=== PATIENT | female | born 1975 | race American Indian/Alaskan Native ===

== ENCOUNTER 2018-10-26 21:23 | Emergency (ER) | payer MEDICAID ==
--- NOTE | 2018-10-26 21:46 | Event Note ---
ED Screening Note Date of service: 10/26/18 Time: 21:44 ED Screening Note: 43 y/o female comes in for vaginal itching and vag discharge. Surgery on June for hysterectomy, hernia . This initial assessment/diagnostic orders/clinical plan/treatment(s) is/are subject to change based on patients health status, clinical progression and re- assessment by fellow clinical providers in the ED. Further treatment and workup at subsequent clinical providers discretion. Patient/guardian urged not to elope from the ED as their condition may be serious if not clinically assessed and managed. Initial orders include:
[2018-10-26 23:30] LABS: Bacteria,Urine 1+ /HPF (Negative); Bilirubin,Urine NEG (Negative); Blood,Urine MOD (Negative); Color,Urine Yellow (Yellow); Mucus,Urine FEW /HPF; Protein,Urine <15 mg/dL mg/dL (Negative); Urobilinogen,Urine < 2.0 mg/dL (<2.0)
--- NOTE | 2018-10-27 00:34 | Emergency Department Report ---
ED Female HPI - General Chief complaint: Urogenital-Female Stated complaint: HANDS/FEET SWELLING/FEVER/VAG ITCH Time Seen by Provider: 10/26/18 21:43 Source: patient Mode of arrival: Ambulatory Limitations: No Limitations - History of Present Illness Initial comments: Patient is a 43-year-old female who presents the emergency room with complaints of vaginal discharge that began 3 days ago. States she has clear discharge. Associated vaginal itching, vaginal irritation, vaginal swelling. She denies any dysuria, urinary frequency, nausea, vomiting, abdominal pain. She is sexually active with a new partner and has not used protection. STD history of Trichomonas which she received treatment for at that time. She denies any past medical history or allergies to medications. She has had a total hysterectomy. - Related Data Previous Rx's Medication Instructions Recorded Last Taken Type metroNIDAZOLE [Flagyl] 500 mg PO BID 7 Days #14 tab 10/27/18 Unknown Rx Allergies Allergy/AdvReac Type Severity Reaction Status Date / Time No Known Allergies Allergy Unverified 10/26/18 21:34 ED Review of Systems ROS: Stated complaint: HANDS/FEET SWELLING/FEVER/VAG ITCH Other details as noted in HPI Comment: All other systems reviewed and negative ED Past Medical Hx - Past Medical History Previous Medical History?: Yes Additional medical history: Fibroid removalwith recent Hysterectomy 3 months ago with bladder lift and hernia repair - Surgical History Past Surgical History?: Yes Additional Surgical History: Fibroid removal with hysterectomy, bladder lift, and hernia repair 07/22/18 - Social History Smoking Status: Never Smoker Substance Use Type: None - Medications Home Medications: Home Medications Medication Instructions Recorded Confirmed Last Taken Type metroNIDAZOLE [Flagyl] 500 mg PO BID 7 Days #14 tab 10/27/18 Unknown Rx ED Physical Exam - General Limitations: No Limitations General appearance: alert, in no apparent distress - Head Head exam: Present: atraumatic, normocephalic - Eye Eye exam: Present: normal appearance, PERRL - ENT ENT exam: Present: mucous membranes moist - Respiratory Respiratory exam: Present: normal lung sounds bilaterally. Absent: respiratory distress, wheezes, rales, rhonchi, stridor, chest wall tenderness, accessory muscle use, decreased breath sounds, prolonged expiratory - Cardiovascular Cardiovascular Exam: Present: regular rate, normal rhythm, normal heart sounds. Absent: systolic murmur, diastolic murmur, rubs, gallop - GI/Abdominal GI/Abdominal exam: Present: soft, normal bowel sounds. Absent: distended, tenderness, guarding, rebound, rigid - External exam: Present: normal external exam. Absent: erythema, swelling, lesions, lacerations, ecchymosis, bleeding Speculum exam: Present: vaginal discharge (copious amounts of clear/white discharge ), other (build master: MARTA Ochoa, cervix is surgically absent ). Absent: erythema, vaginal bleeding, foreign body, tissue, laceration Bi-manual exam: Present: normal bi-manual exam. Absent: adnexal tenderness, adnexal mass - Back Exam Back exam: Absent: CVA tenderness (R), CVA tenderness (L) - Neurological Exam Neurological exam: Present: alert, oriented X3 - Psychiatric Psychiatric exam: Present: normal affect, normal mood - Skin Skin exam: Present: warm, dry, intact ED Course Vital Signs 10/26/18 10/27/18 21:43 02:11 Temperature 98.8 F 98.8 F Pulse Rate 84 67 Respiratory 18 18 Rate Blood Pressure 116/71 Blood Pressure 144/93 [Right] O2 Sat by Pulse 98 99 Oximetry ED Medical Decision Making - Lab Data Lab Results 10/26/18 Range/Units 23:00 Urine Color Yellow (Yellow) Urine Turbidity Slightly-cloudy (Clear) Urine pH 6.0 (5.0-7.0) Ur Specific [place] 1.026 (1.003-1.030) Urine Protein <15 mg/dl (Negative) mg/dL Urine Glucose (UA) Neg (Negative) mg/dL Urine Ketones Neg (Negative) mg/dL Urine Blood Mod (Negative) Urine Nitrite Neg (Negative) Urine Bilirubin Neg (Negative) Urine Urobilinogen < 2.0 (<2.0) mg/dL Ur Leukocyte Esterase Mod (Negative) Urine WBC (Auto) 4.0 (0.0-6.0) /HPF Urine RBC (Auto) 10.0 (0.0-6.0) /HPF U Epithel Cells (Auto) 5.0 (0-13.0) /HPF Urine Bacteria (Auto) 1+ (Negative) /HPF Urine Mucus Few /HPF - Medical Decision Making Patient is a 43-year-old female who presents the emergency room with complaints of vaginal discharge that began 3 days ago. States she has clear discharge. Associated vaginal itching, vaginal irritation, vaginal swelling. She denies any dysuria, urinary frequency, nausea, vomiting, abdominal pain. She is sexually active with a new partner and has not used protection. STD history of Trichomonas which she received treatment for at that time. She denies any past medical history or allergies to medications. She has had a total hysterectomy. UA is normal. wet prep shows many trichomonas, clue cells, and PMNs. Patient given prescription for Flagyl. Advised to take as prescribed. Discussed to not drink alcohol while taking medication. Patient swabbed for gonorrhea and chlamydia. Advised to check back with medical records in one week for results of tests to see if she needs further treatment. Discussed with patient to abstain from sexual intercourse for 10 days. Have partner tested and treated as well. If concern for any other STDs please be seen by the health Department, primary care doctor, or [facility] SPOTTER. Return to the emergency room for any new or worsening symptoms. - Differential Diagnosis UTI, STD, yeast, BV, vaginitis Critical care attestation.: If time is entered above; I have spent that time in minutes in the direct care of this critically ill patient, excluding procedure time. ED Disposition Clinical Impression: Trichomonas vaginitis, BV (bacterial vaginosis) Disposition: DC- TO HOME OR SELFCARE Is pt being admited?: No Does the pt Need Aspirin: No Condition: Stable Instructions: Bacterial Vaginosis (ED), Sexually Transmitted Diseases (ED), Safe Sex (ED), Trichomoniasis (ED) Additional Instructions: Please take medication as prescribed. Do not drink alcohol while taking medication. Please check back with medical records in one week for results of tests to see if you need further treatment. Abstain from sexual intercourse for 10 days. Have partner tested and treated as well. If concerned for any other STDs please be seen by the health Department, primary care doctor, or D[facility] SPOTTER. Return to the emergency room for any new or worsening symptoms. Prescriptions: metroNIDAZOLE [Flagyl] 500 mg PO BID 7 Days #14 tab Referrals: PAULINO GIMENEZ MD [Primary Care Provider] - 2-3 Days Forms: STI Treatment and Prevention Time of Disposition: 01:48 Print Language: KOSOVAN
[2018-10-27 02:12] VITALS: BP 144/93
== END 2018-10-27 02:12 | disposition home or self-care (01) ==
LOC: ED 21:23
DX: A59.01 Trichomonal vulvovaginitis (principal); N76.0 Acute vaginitis; Z90.710 Acquired absence of both cervix and uterus; Z79.899 Other long term (current) drug therapy
CPT/HCPCS: 81001; 87210; 87591; 99284

== ENCOUNTER 2020-03-05 01:35 | Emergency (ER) | payer MEDICAID ==
[2020-03-05 01:48] VITALS: BP 137/47
[2020-03-05 02:18] LABS: Basophils # (Auto) 0.1 K/mm3 (0.0-0.1); Eosinophils # (Auto) 0.2 K/mm3 (0.0-0.4); Hematocrit 37.5 % (30.3-42.9); Lymphocytes # (Auto) 3.3 K/mm3 (1.2-5.4); Lymphocytes % (Auto) 39.2 % (13.4-35.0); Mean Corpuscular HGB Conc 35 % (30-34); Mean Corpuscular Volume 90 fl (79-97); Monocytes # (Auto) 0.6 K/mm3 (0.0-0.8); Monocytes % (Auto) 7.7 % (0.0-7.3); Platelet Count 290 K/mm3 (140-440); Red Blood Count 4.19 M/mm3 (3.65-5.03); Red Cell Distribution Width 12.8 % (13.2-15.2)
[2020-03-05 02:32] LABS: Alanine Aminotransferase 10 units/L (7-56); Albumin 4.2 g/dL (3.9-5); BUN/Creatinine Ratio 14; Blood Urea Nitrogen 13 mg/dL (7-17); Calcium 10.8 mg/dL (8.4-10.2); Hemolysis Index 6
[2020-03-05 03:03] LABS: Bilirubin,Urine NEG (Negative); Blood,Urine NEG (Negative); Color,Urine Yellow (Yellow); Urobilinogen,Urine < 2.0 mg/dL (<2.0)
[2020-03-05] MEDS ORDERED: KETOROLAC 30 MG/1 ML INJ IV ONE (04:22)
[2020-03-05] MEDS ORDERED: ONDANSETRON 4 MG/2 ML INJ IV ONE (04:22)
[2020-03-05] MEDS ORDERED: SODIUM CHLORIDE 0.9% 1000 ML 1,000 ML IV ONE (04:22)
--- NOTE | 2020-03-05 04:29 | Emergency Department Report ---
ED Abdominal Pain HPI - General Chief Complaint: Abdominal Pain Stated Complaint: ABD PAIN/EMESIS/DIZZINESS Time Seen by Provider: 03/05/20 04:20 Source: patient Mode of arrival: Ambulatory Limitations: No Limitations - History of Present Illness Initial Comments: Patient is a 44-year-old female with history of FLORENCIO who presents for abdominal pain that radiates to suprapubic intermittent, some urinary frequency no fever chills, no hematuria. Symptoms of the past 3 days. Symptoms are exacerbated by movement and palpation. Symptoms are relieved by movement and palpation, patient states nausea vomiting last episode 1 hour ago. Patient denies hematu germán, there is no fever no chills. Patient denies history of renal stones , she is s/p FLORENCIO, there has been no fever or chills. MD Complaint: abdominal pain Radiation: suprapubic (17) Migration to: suprapubic Severity scale (0 -10): 4 Quality: cramping, aching Consistency: intermittent Improves With: nothing Worsens With: nothing Associated Symptoms: nausea, vomiting, dysuria. denies: chills, constipation Treatments Prior to Arrival: NSAIDs - Related Data LMP (females 10-50): other (s/p florencio) Previous Rx's Medication Instructions Recorded Last Taken Type metroNIDAZOLE [Flagyl] 500 mg PO BID 7 Days #14 tab 10/27/18 Unknown Rx Albuterol Mdi (or & Nicu Only) 2 puff IH QID PRN #1 inhalation 12/27/18 Unknown Rx [ProAir HFA Inhaler] Benzonatate [Tessalon Perles] 100 mg PO Q8HR PRN #15 capsule 12/27/18 Unknown Rx Ibuprofen [Motrin 800 MG tab] 800 mg PO Q8HR PRN #30 tablet 12/27/18 Unknown Rx Ciprofloxacin HCl [Ciprofloxacin 500 mg PO BID 10 Days #20 tablet 03/05/20 Unknown Rx TAB] Omeprazole 40 mg PO DAILY #30 capsule. 03/05/20 Unknown Rx metroNIDAZOLE [Flagyl] 500 mg PO Q8HR 10 Days #30 tablet 03/05/20 Unknown Rx polyethylene glycoL 3350 [Miralax 17 gm PO BID PRN #14 packet 03/05/20 Unknown Rx 3350] traMADoL [Ultram] 50 mg PO Q6HR PRN #12 tablet 03/05/20 Unknown Rx Allergies Allergy/AdvReac Type Severity Reaction Status Date / Time No Known Allergies Allergy Verified 12/27/18 18:32 ED Review of Systems ROS: Stated complaint: ABD PAIN/EMESIS/DIZZINESS Other details as noted in HPI Constitutional: denies: chills, fever Eyes: denies: eye pain, eye discharge, vision change ENT: denies: ear pain, throat pain Respiratory: denies: cough, shortness of breath, wheezing Cardiovascular: denies: chest pain, palpitations Endocrine: no symptoms reported Gastrointestinal: abdominal pain, nausea, vomiting. denies: diarrhea, constipation Genitourinary: denies: urgency, dysuria, discharge Musculoskeletal: denies: back pain, joint swelling, arthralgia Skin: denies: rash, lesions Neurological: denies: headache, weakness, paresthesias Psychiatric: denies: anxiety, depression Hematological/Lymphatic: swollen glands. denies: easy bleeding, easy bruising ED Past Medical Hx - Past Medical History Previous Medical History?: No Additional medical history: Fibroid. Hysterectomy. Hernia repair - Surgical History Additional Surgical History: Fibroid. Hysterectomy, Bladder lift, and Hernia repair. - Social History Smoking Status: Never Smoker Substance Use Type: None - Medications Home Medications: Home Medications Medication Instructions Recorded Confirmed Last Taken Type metroNIDAZOLE [Flagyl] 500 mg PO BID 7 Days #14 tab 10/27/18 Unknown Rx Albuterol Mdi (or & Nicu Only) 2 puff IH QID PRN #1 inhalation 12/27/18 Unknown Rx [ProAir HFA Inhaler] Benzonatate [Tessalon Perles] 100 mg PO Q8HR PRN #15 capsule 12/27/18 Unknown Rx Ibuprofen [Motrin 800 MG tab] 800 mg PO Q8HR PRN #30 tablet 12/27/18 Unknown Rx Ciprofloxacin HCl [Ciprofloxacin 500 mg PO BID 10 Days #20 tablet 03/05/20 Unknown Rx TAB] Omeprazole 40 mg PO DAILY #30 capsule.dr 03/05/20 Unknown Rx metroNIDAZOLE [Flagyl] 500 mg PO Q8HR 10 Days #30 tablet 03/05/20 Unknown Rx polyethylene glycoL 3350 [Miralax 17 gm PO BID PRN #14 packet 03/05/20 Unknown Rx 3350] traMADoL [Ultram] 50 mg PO Q6HR PRN #12 tablet 03/05/20 Unknown Rx ED Physical Exam - General Limitations: No Limitations General appearance: alert, in no apparent distress - Head Head exam: Present: atraumatic, normocephalic - Eye Eye exam: Present: normal appearance, PERRL, EOMI Pupils: Present: irregular - ENT ENT exam: Present: mucous membranes moist - Neck Neck exam: Present: normal inspection - Respiratory Respiratory exam: Present: normal lung sounds bilaterally. Absent: respiratory distress - Cardiovascular Cardiovascular Exam: Present: regular rate, normal rhythm, normal heart sounds. Absent: systolic murmur, diastolic murmur, rubs, gallop - GI/Abdominal GI/Abdominal exam: Present: soft, tenderness (mild cva tenderness to deep palpation), normal bowel sounds. Absent: distended, guarding, rebound, rigid, bruit, hernia - Rectal Rectal exam: Present: deferred - Extremities Exam Extremities exam: Present: normal inspection - Back Exam Back exam: Present: normal inspection, full ROM. Absent: tenderness, CVA tenderness (R), CVA tenderness (L) - Neurological Exam Neurological exam: Present: alert, oriented X3 - Psychiatric Psychiatric exam: Present: normal affect, normal mood - Skin Skin exam: Present: warm, dry, intact, normal color. Absent: rash ED Course Vital Signs 03/05/20 01:43 Temperature 98.5 F Pulse Rate 99 H Respiratory 18 Rate Blood Pressure 137/47 O2 Sat by Pulse 99 Oximetry ED Medical Decision Making - Lab Data Result diagrams: 03/05/20 01:53 03/05/20 01:53 Labs 03/05/20 03/05/20 03/05/20 01:53 01:53 02:39 WBC 8.3 RBC 4.19 Hgb 13.0 Hct 37.5 MCV 90 MCH 31 MCHC 35 H RDW 12.8 L Plt Count 290 Lymph % (Auto) 39.2 H [place] % (Auto) 7.7 H Eos % (Auto) 2.0 Baso % (Auto) 1.0 Lymph # (Auto) 3.3 [place] # (Auto) 0.6 Eos # (Auto) 0.2 Baso # (Auto) 0.1 Seg Neutrophils % 50.1 Seg Neutrophils # 4.2 Sodium 143 Potassium 4.0 Chloride 106.1 Carbon Dioxide 30 Anion Gap 11 BUN 13 Creatinine 0.9 Estimated GFR > 60 BUN/Creatinine Ratio 14 Glucose 136 H Calcium 10.8 H Total Bilirubin 0.40 AST 20 ALT 10 Alkaline Phosphatase 57 Total Protein 7.6 Albumin 4.2 Albumin/Globulin Ratio 1.2 Lipase 26 Urine Color Yellow Urine Turbidity Turbid Urine pH 7.0 Ur Specific [place] 1.017 Urine Protein 100 mg/dl Urine Glucose (UA) Neg Urine Ketones Neg Urine Blood Neg Urine Nitrite Neg Urine Bilirubin Neg Urine Urobilinogen < 2.0 Ur Leukocyte Esterase Neg Urine WBC (Auto) 21.0 H Urine RBC (Auto) 9.0 - Radiology Data Radiology results: report reviewed, image reviewed Findings Reporting MD: Rell Spence Dictation Time: March 05, 2020 04:54 Dispute Specialist: Not available Dining Car Conductor Date: CT ABDOMEN AND PELVIS WITHOUT CONTRAST INDICATION / CLINICAL INFORMATION: Pt complains of mid-abdominal pain with nausea and vomiting.. TECHNIQUE: Axial CT images were obtained through the abdomen and pelvis without IV contrast. All CT scans at this location are performed using CT dose reduction for ALARA by means of automated exposure control. COMPARISON: None available. FINDINGS: LOWER CHEST: No significant abnormality. LIVER: Fatty liver. GALLBLADDER: No significant abnormality. BILE DUCTS: No significant abnormality. PANCREAS: No significant abnormality. SPLEEN: No significant abnormality. ADRENALS: No significant abnormality. RIGHT KIDNEY and URETER: No significant abnormality. LEFT KIDNEY and URETER: No significant abnormality. STOMACH and SMALL BOWEL: Several dilated loops of small bowel within the mid abdomen that appeared to the anterior abdominal wall at the level the umbilicus.. COLON: No significant abnormality. APPENDIX: No significant abnormality. PERITONEUM: No free fluid. No free air. No fluid collection. LYMPH NODES: No significant adenopathy. AORTA and ARTERIES: No significant abnormality. IVC and VEINS: No significant abnormality. URINARY BLADDER: No significant abnormality. REPRODUCTIVE ORGANS: No significant abnormality. ADDITIONAL FINDINGS: None. SKELETAL SYSTEM: No significant abnormality. IMPRESSION: Load intermediate grade mechanical small bowel obstruction of the small bowel near the level the umbilicus, possibly secondary to adhesions. [place] Imagi - Medical Decision Making ct abd and pelvis: Load intermediate grade mechanical small bowel obstruction of the small bowel near the level the umbilicus, possibly secondary to adhesions. I have discuss indepth with patient concerning possible SBO and need for surgical consult and possible inpatient tx, pt declines - states Pain is now 0/10 after medications given in ED. Patient is tolerating p.o. intake without nausea vomiting. Patient advises having normal bowel movements. There is no periumbilical pain at this time. There has been no fevers no chills and N/V now resolved, pt has had bowel movement since arrival to ed. pt declined General surgery consult, agrees to follow up with same. pt given strict instructions to return to ed if symptoms return or worsen. pt has follow up appoint with [facility], given referral to general surgery, dc'd with abx, Miralax , will continue hydrate as directed. pt verbalized agreement and understanding of discharge plan. pt dc'd in stable condition at this time. Critical care attestation.: If time is entered above; I have spent that time in minutes in the direct care of this critically ill patient, excluding procedure time. ED Disposition Clinical Impression: UTI (urinary tract infection) Qualifiers: Urinary tract infection type: acute cystitis Hematuria presence: without hematuria Qualified Code(s): N30.00 - Acute cystitis without hematuria Abdominal pain Qualifiers: Abdominal location: generalized Qualified Code(s): R10.84 - Generalized abdominal pain Disposition: DC- TO HOME OR SELFCARE Is pt being admited?: No Does the pt Need Aspirin: No Condition: Stable Instructions: Abdominal Pain (ED) Additional Instructions: Hydrate as directed 1 gallon of water daily for next 3 days, return to emergency if nause and vomiting returns or unable to have bowel movement, of fever. Call General Surgery consult today Dr. Celeste for follow up. Prescriptions: Ciprofloxacin HCl [Ciprofloxacin TAB] 500 mg PO BID 10 Days #20 tablet metroNIDAZOLE [Flagyl] 500 mg PO Q8HR 10 Days #30 tablet polyethylene glycoL 3350 [Miralax 3350] 17 gm PO BID PRN #14 packet PRN Reason: Constipation Omeprazole 40 mg PO DAILY #30 capsule. traMADoL [Ultram] 50 mg PO Q6HR PRN #12 tablet PRN Reason: Pain Referrals: AARON CELESTE DO [Staff Physician] - 3-5 Days Forms: Work/School Release Form(ED) Time of Disposition: 06:44
--- NOTE | 2020-03-05 05:58 | Cat Scan Report ---
CT ABDOMEN AND PELVIS WITHOUT CONTRAST INDICATION / CLINICAL INFORMATION: Pt complains of mid-abdominal pain with nausea and vomiting.. TECHNIQUE: Axial CT images were obtained through the abdomen and pelvis without IV contrast. All CT scans at [facility] location are performed using CT dose reduction for ALARA by means of automated exposure control. COMPARISON: None available. FINDINGS: LOWER CHEST: No significant abnormality. LIVER: Fatty liver. GALLBLADDER: No significant abnormality. BILE DUCTS: No significant abnormality. PANCREAS: No significant abnormality. SPLEEN: No significant abnormality. ADRENALS: No significant abnormality. RIGHT KIDNEY and URETER: No significant abnormality. LEFT KIDNEY and URETER: No significant abnormality. STOMACH and SMALL BOWEL: Several dilated loops of small bowel within the mid abdomen that appeared to the anterior abdominal wall at the level the umbilicus.. COLON: No significant abnormality. APPENDIX: No significant abnormality. PERITONEUM: No free fluid. No free air. No fluid collection. LYMPH NODES: No significant adenopathy. AORTA and ARTERIES: No significant abnormality. IVC and VEINS: No significant abnormality. URINARY BLADDER: No significant abnormality. REPRODUCTIVE ORGANS: No significant abnormality. ADDITIONAL FINDINGS: None. SKELETAL SYSTEM: No significant abnormality. IMPRESSION: Load intermediate grade mechanical small bowel obstruction of the small bowel near the level the umbi licus, possibly secondary to adhesions. Signer Name: Rell Spence MD Signed: 03/05/2020 5:54 AM Workstation Name: [id number]
== END 2020-03-05 06:50 | disposition home or self-care (01) ==
LOC: ED 01:35
DX: N39.0 Urinary tract infection, site not specified (principal); R10.30 Lower abdominal pain, unspecified; Z90.710 Acquired absence of both cervix and uterus; Z79.899 Other long term (current) drug therapy; Z98.890 Other specified postprocedural states
CPT/HCPCS: 36415; 74176; 80053; 81001; 83690; 85025; 87086; 96361; 96374; 96375; 99284; J1885; J2405; J7030

== ENCOUNTER 2020-03-18 04:57 | Emergency (ER) | payer MEDICAID ==
[2020-03-18 06:26] LABS: Basophils % (Auto) 0.7 % (0.0-1.8); Eosinophils # (Auto) 0.1 K/mm3 (0.0-0.4); Eosinophils % (Auto) 1.9 % (0.0-4.3); Hematocrit 39.3 % (30.3-42.9); Hemoglobin 13.2 gm/dl (10.1-14.3); Lymphocytes % (Auto) 28.1 % (13.4-35.0); Mean Corpuscular HGB Conc 34 % (30-34); Mean Corpuscular Volume 91 fl (79-97); Monocytes # (Auto) 0.6 K/mm3 (0.0-0.8); Monocytes % (Auto) 7.9 % (0.0-7.3); Platelet Count 306 K/mm3 (140-440); Red Cell Distribution Width 13.4 % (13.2-15.2)
[2020-03-18 06:31] LABS: Bacteria,Urine 1+ /HPF (Negative); Bilirubin,Urine NEG (Negative); Blood,Urine NEG (Negative); Color,Urine Yellow (Yellow); Mucus,Urine FEW /HPF; Protein,Urine <15 mg/dL mg/dL (Negative); Urobilinogen,Urine < 2.0 mg/dL (<2.0)
[2020-03-18 06:35] LABS: Alanine Aminotransferase 13 units/L (7-56); Albumin 4.2 g/dL (3.9-5); BUN/Creatinine Ratio 11; Blood Urea Nitrogen 9 mg/dL (7-17); Calcium 10.6 mg/dL (8.4-10.2); Hemolysis Index 9
[2020-03-18] MEDS ORDERED: LACTATED RINGERS 1,000 ML IV ONE (07:06)
[2020-03-18] MEDS ORDERED: MORPHINE 4 MG/1 ML INJ IV ONE (07:06)
[2020-03-18] MEDS ORDERED: ONDANSETRON 4 MG/2 ML INJ IV ONE (07:06)
--- NOTE | 2020-03-18 07:12 | Emergency Department Report ---
ED General Adult HPI - General Chief complaint: Abdominal Pain Stated complaint: NAUSEA/HEADACHE/ABD PAIN PUI?: No Time Seen by Provider: 03/18/20 07:03 Source: patient Mode of arrival: Ambulatory Limitations: No Limitations - History of Present Illness Initial comments: 44-year-old female presenting with chief complaint of abdominal pain, sudden onset at 3:00 this morning associated with nausea and vomiting. Denies any fevers, constipation, diarrhea, dysuria. She does state that she was here for similar symptoms about 2 weeks ago but they resolved. She reports pain is moderate to severe, constant, nonradiating. Denies any other associated symptoms. No alleviating or exacerbating factors. - Related Data Previous Rx's Medication Instructions Recorded Last Taken Type metroNIDAZOLE [Flagyl] 500 mg PO BID 7 Days #14 tab 10/27/18 Unknown Rx Albuterol Mdi (or & Nicu Only) 2 puff IH QID PRN #1 inhalation 12/27/18 Unknown Rx [ProAir HFA Inhaler] Benzonatate [Tessalon Perles] 100 mg PO Q8HR PRN #15 capsule 12/27/18 Unknown Rx Ibuprofen [Motrin 800 MG tab] 800 mg PO Q8HR PRN #30 tablet 12/27/18 Unknown Rx Ciprofloxacin HCl [Ciprofloxacin 500 mg PO BID 10 Days #20 tablet 03/05/20 Unknown Rx TAB] Omeprazole 40 mg PO DAILY #30 capsule. 03/05/20 Unknown Rx metroNIDAZOLE [Flagyl] 500 mg PO Q8HR 10 Days #30 tablet 03/05/20 Unknown Rx polyethylene glycoL 3350 [Miralax 17 gm PO BID PRN #14 packet 03/05/20 Unknown Rx 3350] Nystatin [Nystatin SUSP] 5 ml PO QID #140 ml 03/18/20 Unknown Rx Ondansetron [Zofran Odt] 4 mg PO Q8HR #12 tab.rapdis 03/18/20 Unknown Rx Promethazine [Phenergan] 25 mg PO Q6HR PRN #12 tab 03/18/20 Unknown Rx traMADoL [Ultram 50 MG tab] 50 mg PO Q6HR PRN #12 tablet 03/18/20 Unknown Rx Allergies Allergy/AdvReac Type Severity Reaction Status Date / Time No Known Allergies Allergy Verified 12/27/18 18:32 ED Review of Systems ROS: Stated complaint: NAUSEA/HEADACHE/ABD PAIN Other details as noted in HPI Comment: All other systems reviewed and negative Gastrointestinal: as per HPI ED Past Medical Hx - Past Medical History Previous Medical History?: No Additional medical history: Fibroid. Hysterectomy. Hernia repair - Surgical History Past Surgical History?: Yes Additional Surgical History: Fibroid. Hysterectomy, Bladder lift, and Hernia repair. - Social History Smoking Status: Never Smoker Substance Use Type: Alcohol - Medications Home Medications: Home Medications Medication Instructions Recorded Confirmed Last Taken Type metroNIDAZOLE [Flagyl] 500 mg PO BID 7 Days #14 tab 10/27/18 Unknown Rx Albuterol Mdi (or & Nicu Only) 2 puff IH QID PRN #1 inhalation 12/27/18 Unknown Rx [ProAir HFA Inhaler] Benzonatate [Tessalon Perles] 100 mg PO Q8HR PRN #15 capsule 12/27/18 Unknown Rx Ibuprofen [Motrin 800 MG tab] 800 mg PO Q8HR PRN #30 tablet 12/27/18 Unknown Rx Ciprofloxacin HCl [Ciprofloxacin 500 mg PO BID 10 Days #20 tablet 03/05/20 Unknown Rx TAB] Omeprazole 40 mg PO DAILY #30 capsule.dr 03/05/20 Unknown Rx metroNIDAZOLE [Flagyl] 500 mg PO Q8HR 10 Days #30 tablet 03/05/20 Unknown Rx polyethylene glycoL 3350 [Miralax 17 gm PO BID PRN #14 packet 03/05/20 Unknown Rx 3350] Nystatin [Nystatin SUSP] 5 ml PO QID #140 ml 03/18/20 Unknown Rx Ondansetron [Zofran Odt] 4 mg PO Q8HR #12 tab.rapdis 03/18/20 Unknown Rx Promethazine [Phenergan] 25 mg PO Q6HR PRN #12 tab 03/18/20 Unknown Rx traMADoL [Ultram 50 MG tab] 50 mg PO Q6HR PRN #12 tablet 03/18/20 Unknown Rx ED Physical Exam - General Limitations: No Limitations General appearance: alert, in no apparent distress - Head Head exam: Present: atraumatic, normocephalic - Eye Eye exam: Present: normal appearance - ENT ENT exam: Present: mucous membranes moist - Neck Neck exam: Present: normal inspection - Respiratory Respiratory exam: Present: normal lung sounds bilaterally. Absent: respiratory distress - Cardiovascular Cardiovascular Exam: Present: regular rate, normal rhythm. Absent: systolic murmur, diastolic murmur, rubs, gallop - GI/Abdominal GI/Abdominal exam: Present: soft, tenderness (Periumbilical/lower abdomen), diminished bowel sounds. Absent: distended, guarding, rebound - Extremities Exam Extremities exam: Present: normal inspection - Back Exam Back exam: Present: normal inspection - Neurological Exam Neurological exam: Present: alert, oriented X3 - Psychiatric Psychiatric exam: Present: normal affect, normal mood - Skin Skin exam: Present: warm, dry, intact, normal color. Absent: rash ED Course Vital Signs 03/18/20 03/18/20 03/18/20 05:09 07:38 08:13 Pulse Rate 88 Respiratory 18 18 18 Rate Blood Pressure 131/82 O2 Sat by Pulse 99 99 Oximetry ED Medical Decision Making - Lab Data Result diagrams: 03/18/20 05:51 03/18/20 05:51 - Radiology Data Low-grade SBO, improved from prior - Medical Decision Making 44-year-old female with history of total abdominal hysterectomy presents with chief complaint of abdominal pain since 3:00 this morning. States she had similar symptoms here couple weeks ago. On my exam today she has tenderness to the periumbilical area as well as the lower abdomen but no rigidity. Bowel sounds do seem to be decreased. Review of records from 2 weeks ago showed a [address] scan with findings suggestive of small bowel obstruction however at that time the patient refused admission and stated that she felt better and went home. Today we will check labs, repeat CT scan, give IV fluids, morphine, Zofran and then reassess. CT shows findings of chronic low-grade bowel obstruction, I discussed this with Dr. Celeste, general surgery who is also reviewed the CT and states this may be more of an enteritis however recommends if patient's pain is controlled and she can tolerate oral fluids she does not feel that admission is necessary and that she can follow-up outpatient. I discussed with the patient who is tolerating oral fluids and states that she feels much better and agrees that she is stable for outpatient follow-up. I did advise if symptoms worsen she should return. She also states that she believes she has thrush on her tongue and this is noted, albeit mild, will treat. - Differential Diagnosis SBO, abdominal adhesions, colitis Critical care attestation.: If time is entered above; I have spent that time in minutes in the direct care of this critically ill patient, excluding procedure time. ED Disposition Clinical Impression: SBO (small bowel obstruction) Disposition: TO HOME OR SELFCARE Is pt being admited?: No Condition: Stable Instructions: Abdominal Pain (ED), Bowel Obstruction, [id number], Bowel Obstruction Prescriptions: Nystatin [Nystatin SUSP] 5 ml PO QID #140 ml Promethazine [Phenergan] 25 mg PO Q6HR PRN #12 tab PRN Reason: Nausea traMADoL [Ultram 50 MG tab] 50 mg PO Q6HR PRN #12 tablet PRN Reason: Pain Ondansetron [Zofran Odt] 4 mg PO Q8HR #12 tab.[email or web address] Referrals: PRIMARY CARE,MD [Primary Care Provider] - 3-5 Days AARON CELESTE DO [Staff Physician] - 3-5 Days Time of Disposition: 10:38
--- NOTE | 2020-03-18 08:54 | Cat Scan Report ---
CT abdomen pelvis w con INDICATION / CLINICAL INFORMATION: Abdominal pain TECHNIQUE: Routine CT abdomen and pelvis with IV contrast All CT scans at this location are performed using CT d ose reduction for ALARA by means of automated exposure control. COMPARISON: 03/05/2020 FINDINGS: Abdomen and pelvis: When compared to the prior exam there has been minimal to only slight improvement in the overall distention of the slightly dilated distal small bowel loops. There is again subtle ar eas of angulation and transition within the midline abdomen, similar in pattern to the prior exam. Th e appendix remains slightly prominent however it is unchanged in overall size and appearance from the prior exam. The liver, gallbladder, spleen, pancreas adrenal glands and kidneys are unremarkable. Si gmoid diverticulosis. Slight interval increase in the amount of fluid within the pelvis which is ultimately nonspecific but could be physiologic or related to hysterectomy. There is sigmoid diverticulosis. There is mild dege nerative changes involving the lower lumbar spine and both SI joints. The lower lungs are grossly quinn ar aside from minimal basilar atelectasis. IMPRESSION: Chronic, low-grade distal small bowel obstruction which is only slightly improved when co mpared to 03/05/2020. Persistent free pelvic fluid within the lower pelvis. Signer Name: Rell Spence MD Signed: 03/18/2020 8:50 AM Workstation Name: [email or web address]
[2020-03-18 11:00] VITALS: BP 129/72
== END 2020-03-18 10:57 | disposition home or self-care (01) ==
LOC: ED 04:57
DX: K56.609 Unspecified intestinal obstruction, unspecified as to partial versus complete obstruction (principal); R11.2 Nausea with vomiting, unspecified; Z90.710 Acquired absence of both cervix and uterus; Z98.890 Other specified postprocedural states; Z79.1 Long term (current) use of non-steroidal anti-inflammatories (NSAID); Z79.2 Long term (current) use of antibiotics; Z79.899 Other long term (current) drug therapy
CPT/HCPCS: 36415; 74177; 80053; 81001; 83690; 85025; 96361; 96374; 96375; 99284; J2270; J2405; J7120; Q9967